=== PATIENT | male | born 1955 | race Caucasian/White ===

== ENCOUNTER → 2016-08-22 | Outpatient (CLI) | payer MEDICAID ==
[~2016-08-22] MED LIST: ASPIRIN 81MG TA81 MG PO; CLARITIN 10MG T10 MG PO; FINASTERIDE5 M1 PO; FISH OIL1000 MG PO; GLIPIZIDE10 MG PO; JANUMET 50-1,01 EACH PO; METFORMIN 500M500 M1 PO; VALSARTAN AND H1 TA2 PO
--- NOTE | 2016-08-22 13:52 | RADIOLOGY REPORT PS360 ---
History and Indications: History of DC obesity hypertension diabetes family history palpitations and fatigue Procedure: Patient received 0.4 mg of Lexiscan, resting heart rate was 80 beats per resting blood pressure 171/89, with Lexiscan maximum heart rate achieved was 93 beats per which is less than 85% of the maximum predicted heart rate and the blood pressure was 164/ 102. With Lexiscan no symptoms of chest pain or shortness of breath were recorded. Electrocardiogram: Resting electrocardiogram showed sinus rhythm nonspecific ST-T changes, with Lexiscan less than 1.5 mm the segment depression noted from the baseline EKG. The EKG portion of the Lexiscan is nondiagnostic. Cardiac stress and resting SPECT images: Cardiac stress and resting SPECT images were obtained using technetium 99 Myoview 11.0 mCi at rest, and 28.3 mCi at stress, gated SPECT further analysis of segmental wall motion and calculation of the ejection fraction also done. Cardiac stress and resting SPECT images show a fixed defect involving the inferior wall with normal collecting secondary to soft tissue attenuation from the diaphragm no reversible ischemia seen. Computer derived ejection fraction is 55% with no obvious regional wall motion abnormality, right ventricle is normal size and contractility. Conclusion: 1. The EKG portion of the Lexiscan is nondiagnostic. 2. No obvious scintigraphic evidence of reversible ischemia seen. Computer derived ejection fraction 55% with no obvious regional wall motion abnormality, right ventricle is normal size and contractility.
== END ==
LOC: RAD 06:29
DX: I10 Essential (primary) hypertension (principal); E11.9 Type 2 diabetes mellitus without complications; G47.33 Obstructive sleep apnea (adult) (pediatric); Z01.818 Encounter for other preprocedural examination
CPT/HCPCS: A9502; J2785